=== PATIENT | female | born 1980 | race Caucasian/White ===

== ENCOUNTER → 2017-01-03 | Outpatient (CLI) | payer BC ==
[~2017-01-03] MED LIST: FERR325T51 PO
--- NOTE | 2017-01-03 13:52 | MAMMOGRAPHY REPORT ---
BILATERAL DIGITAL DIAGNOSTIC MAMMOGRAM TOMOSYNTHESIS WITH CAD AND TARGETED LEFT ULTRASOUND: 7 CLINICAL HISTORY: The patient reports left breast pain for approximately 2 months. She denies an as sociated lump or other complaints. TECHNIQUE: Breast tomosynthesis in addition to standard 2D mammography was performed. Current study was also evaluated with a Computer Aided Detection (CAD) system. Bilateral CC and MLO 2-D and adele synthesis images were obtained. COMPARISON: No prior exams were available for comparison. BREAST COMPOSITION: There are scattered areas of fibroglandular density in both breasts. FINDINGS: A triangle marker peck the site of pain in the left 12:00 breast. No suspicious masses o r other suspicious mammographic abnormalities are noted in this region. The remainder of both breas ts are negative, without suspicious masses, calcifications, or areas of architectural distortion not ed. Targeted ultrasound was performed of the area of pain pointed out by the patient, in the left breast at 12:00 and subareolar region. Sonographically normal tissue is seen, without evidence of a mass or other suspicious sonographic abnormality. IMPRESSION: ACR BI-RADS CATEGORY 1: NEGATIVE, TARGETED ULTRASOUND ACR BI-RADS CATEGORY 1: NEGATIVE No suspicious mammographic or sonographic abnormality at the site of left breast pain. There is no mammographic or targeted sonographic evidence of malignancy. Recommend clinical follow-up for left breast pain, and recommend routine bilateral screening mammograms starting at the age of 40 unless o therwise clinically indicated. The patient has been verbally notified of the results. Approximately 10% of breast cancers are not detected with mammography. A negative mammographic repor t should not delay biopsy if a clinically suggestive mass is present. Ashley Brooks M.D. ah/:01/03/2017 09:01:17 Director Of Ancillary Services: Chloe Aleman, [facility] letter sent: Normal 1/2 BI-RADS Code: ACR BI-RADS Category 1: Negative Ultrasound BI-RADS: ACR BI-RADS Category 1: Negative
== END | disposition home or self-care (01) ==
LOC: C.MAMM 08:38
PROVIDERS: ATTEND Obstetrics & Gynecology
DX: N64.4 Mastodynia (principal)